=== PATIENT | male | born 1960 | race Asian ===

== ENCOUNTER 2024-02-18 06:57 | Day surgery (SDC) | payer OTHER ==
[~2024-02-18] VITALS: Ht 165.2 cm; Wt 73.5 kg
[2024-02-18] VITALS (13 sets, daily range): BP systolic 109–131; BP diastolic 70–85; PULSE 45–58; TEMP 98
[~2024-02-18 06:57] MED LIST: ASPIRIN E.C. 8181 MG PO; CRESTOR20 MG PO; TOPROL XL 50MG50 MG PO
[2024-02-18] MEDS ORDERED: 1/2 NS 1,000 ML IV SCH (07:30)
[2024-02-18 08:16] LABS: HEMATOCRIT 45.9 % (42.0-52.0); HEMOGLOBIN 14.9 g/dl (13.5-18.0); MEAN CELL VOLUME 82 fl (80.0-100.0); MEAN CORPUSCULAR HEMOGLOBIN 27 pg (27-31); MEAN CORPUSCULAR HGB CONC 33 g/dl (33.0-37.0); MEAN PLATELET VOLUME 10.9 fl (7.4-10.4); PLATELET COUNT 199 K/mm3 (130-400); RED BLOOD COUNT 5.58 M/mm3 (4.20-5.60)
[2024-02-18] MEDS ORDERED: JARDIANCE25 PO (08:16)
[2024-02-18] MEDS ORDERED: K-DUR20 MEQ PO (08:18)
[2024-02-18] MEDS ORDERED: NORVASC 10MG10 MG PO (08:18)
[2024-02-18] MEDS ORDERED: ZYRTEC 10MG10 MG PO (08:19)
[2024-02-18] MEDS ORDERED: ZESTRIL40 MG PO (08:19)
[2024-02-18] MEDS ORDERED: THE MEDICINE S200 M2 PO (08:20)
[2024-02-18] MEDS ORDERED: MULTI VITAMINS1 TAB PO (08:20)
[2024-02-18] MEDS ORDERED: VITAMINC1000TA PO (08:21)
[2024-02-18] MEDS ORDERED: PRESERVISION1 SGL PO (08:22)
[2024-02-18 08:32] LABS: INR 1.1 (0.8-3.0); PROTHROMBIN TIME 11.4 SECONDS (9.7-12.8)
[2024-02-18 08:35] LABS: PARTIAL THROMBOPLASTIN TIME 30.7 SECONDS (26.0-37.0)
[2024-02-18 08:56] LABS: CALCIUM 9.1 mg/dL (8.4-10.2); CREATININE, serum 0.88 mg/dL (0.72-1.25); POTASSIUM 3.6 mEq/L (3.5-4.5)
--- NOTE | 2024-02-18 08:59 | NUR ---
Pt to procedure,report to ROB Gold.
[2024-02-18] MEDS ORDERED: niCARdipine (Cath Lab) 100 MCG/ML 10 ML VIAL IA SCH (09:09)
[2024-02-18] MEDS ORDERED: Heparin 1,000 UNITS/ML 10 ML Multi-Dose VIAL IV SCH (09:10)
[2024-02-18] MEDS ORDERED: fentaNYL 50 MCG/ML 2 ML VIAL IV SCH (09:43)
[2024-02-18] MEDS ORDERED: Midazolam 2 MG/2 ML VIAL IV SCH (09:43)
[2024-02-18] MEDS ORDERED: Iohexol 350 - 100 ML VIAL INCOR ONE (09:45)
[2024-02-18] MEDS ORDERED: CRESTOR40 MG PO (09:56)
--- NOTE | 2024-02-18 09:59 | NUR ---
Pt returned from procedure.Report Alla us RN.Patient observed alert and orientated.Dressing to right radial access observed clean,dry, radial band intact.Pt denies pain at this time.Will continue to monitor.
--- NOTE | 2024-02-18 10:02 | NUR ---
Andrze is transferred back to express unit rm [address] Martin. He tolerated procedure with no problem. TR band to rt wrist, cms intact distal, no evidence of bleeding. BS report and handoff of care to Anju RIVAS. Please see merge document for record of interventions, vitals and medications adminsitered during left heart cath.
[2024-02-18] MEDS ORDERED: Nitroglycerin 2% Topical Oint 1 GM UD TD SCH (10:47)
--- NOTE | 2024-02-18 13:00 | NUR ---
All air removed from right radial band in 2-3 ml incriments.No bleeding observed at site.Bandaid applied,gauze and coban wrapped around radial site.
--- NOTE | 2024-02-18 13:06 | NUR ---
Dressing observed clean,dry,and intact.Discharge instructions given to pt.Pt verbalizes understanding.Pt escorted out via wheelchair by this nurse.
== END 2024-02-18 13:16 ==
LOC: COL.CAR 06:57
PROVIDERS: Internal Medicine Cardiovascular Disease
DX: I25.10 Atherosclerotic heart disease of native coronary artery without angina pectoris (principal)
CPT/HCPCS: C1769; J1644; J2250; J2404; J3010; Q9967